=== PATIENT | female | born 1995 | race Caucasian/White ===

== ENCOUNTER 2016-09-03 15:51 | Emergency (ER) | payer MEDICAID, OTHER ==
[2016-09-03] MEDS ORDERED: Sodium Chloride 0.9% 10 ML Syringe FLUSH PRN (16:01)
[2016-09-03] MEDS ORDERED: Sodium Chloride 0.9% 1,000 ML IV ONE (16:01)
[2016-09-03] MEDS ORDERED: Sodium Chloride 0.9% 2.5 ML Syringe FLUSH PRN (16:01)
[2016-09-03] MEDS ORDERED: LORazepam 2 MG/ML MDV IVPUSH ONE (16:01)
--- NOTE | 2016-09-03 16:21 | EDM.PDOC ---
ED HPI GENERAL MEDICAL PROBLEM - General Chief Complaint: Chest Pain Stated Complaint: UNK Time Seen by Provider: 09/03/16 16:00 - History of Present Illness INITIAL COMMENTS - FREE TEXT/NARRATIVE: HISTORY AND PHYSICAL: History of present illness: Patient is a 21-year-old female was approximately 10 weeks with history of anxiety presents with concern of left lower chest pain that came on somewhat acutely when she was putting on her makeup she subsequently hyperventilated and presents here for evaluation she has had similar episodes in the past she has been followed by [facility] 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 Past medical history: As per history of present illness and as reviewed below otherwise noncontributory. Surgical history: As per history of present illness and as reviewed below otherwise noncontributory. Social history: No reported history of drug or alcohol abuse. Family history: As per history of present illness and as reviewed below otherwise noncontributory. Physical exam: HEENT: Atraumatic, normocephalic, pupils reactive, negative for conjunctival pallor or scleral icterus, mucous membranes moist, throat clear, neck supple, nontender, trachea midline. Lungs: Clear to auscultation, breath sounds equal bilaterally, chest nontender. Heart: S1S2, regular, negative for clicks, rubs, or JVD. Abdomen: Soft, nondistended, nontender. Negative for masses or hepatosplenomegaly. Negative for costovertebral tenderness. Pelvis: Stable nontender. Genitourinary: Deferred. Rectal: Deferred. Extremities: Atraumatic, negative for cords or calf pain. Neurovascular unremarkable. Neuro: Awake, alert, oriented. Cranial nerves II through XII unremarkable. Cerebellum unremarkable. Motor and sensory unremarkable throughout. Exam nonfocal. Diagnostics: EKG CBC CMP Therapeutics: Normal saline 1 L bolus Impression: #1 atypical chest pain #2 anxiety #3 first trimester Definitive disposition and diagnosis as appropriate pending reevaluation and review of above. Left Chest Pain Score (Numeric/FACES): 10 - Related Data Allergies Allergy/AdvReac Type Severity Reaction Status Date / Time Penicillins Allergy Difficulty Verified 09/03/16 16:03 Breathing Home Meds: Home Meds Albuterol [Ventolin HFA] 2 puff INH DAILY PRN 12/11/15 [History] Past Medical History - Past Health History Medical/Surgical History: Denies Medical/Surgical History Respiratory History: Reports: Asthma Musculoskeletal History: Reports: None Other Musculoskeletal History: torn ACL and meniscus on left knee currently Dermatologic History: Reports: Other (see below) Other Dermatologic History: cold induced urticaria - Past Surgical History Other Musculoskeletal Surgeries/Procedures:: knee surgery left (2012) Social & Family History - Family History Family Medical History: Noncontributory - Tobacco Use Smoking Status *Q: Never Smoker Second Hand Smoke Exposure: No - Recreational Drug Use Recreational Drug Use: No ED ROS GENERAL - Review of Systems Review Of Systems: ROS reveals no pertinent complaints other than HPI. ED EXAM, GENERAL - Physical Exam Exam: See Below (See dictation) Course - Vital Signs Last Recorded V/S: Last Vital Signs Temp 36.6 C 09/03/16 16:03 Pulse 76 09/03/16 16:03 Resp 32 H 09/03/16 16:03 BP 126/73 09/03/16 16:03 Pulse Ox 100 09/03/16 16:03 - Orders/Labs/Meds Orders: Active Orders 24 hr Category Date Time Status EKG Documentation Completion [RC] STAT Care 09/03/16 16:00 Active Pulse Oximetry [RC] ASDIRECTED Care 09/03/16 16:00 Active Sodium Chloride 0.9% [Saline Flush] Med 09/03/16 16:01 Active 10 ml FLUSH ASDIRECTED PRN Sodium Chloride 0.9% [Saline Flush] Med 09/03/16 16:01 Active 2.5 ml FLUSH ASDIRECTED PRN Saline Lock Insert [OM.PC] Stat Oth 09/03/16 16:00 Ordered Medication Orders Sodium Chloride (Saline Flush) 10 ml FLUSH ASDIRECTED PRN PRN Reason: Keep Vein Open Sodium Chloride (Saline Flush) 2.5 ml FLUSH ASDIRECTED PRN PRN Reason: Keep Vein Open Labs: Laboratory Tests 09/03/16 09/03/16 Range/Units 16:19 16:19 WBC 9.89 (4.0-11.0) K/uL RBC 4.39 (4.30-5.90) M/uL Hgb 13.1 (12.0-16.0) g/dL Hct 38.3 (36.0-46.0) % MCV 87.2 (80.0-98.0) fL MCH 29.8 (27.0-32.0) pg MCHC 34.2 (31.0-37.0) g/dL RDW Std Deviation 39.5 (28.0-62.0) fl RDW Coeff of Kody 12 (11.0-15.0) % Plt Count 312 (150-400) K/uL MPV 9.90 (7.40-12.00) fL Neut % (Auto) 74.3 (48.0-80.0) % Lymph % (Auto) 18.3 (16.0-40.0) % [place] % (Auto) 6.6 (0.0-15.0) % Eos % (Auto) 0.6 (0.0-7.0) % Baso % (Auto) 0.2 (0.0-1.5) % Neut # (Auto) 7.4 H (1.4-5.7) K/uL Lymph # (Auto) 1.8 (0.6-2.4) K/uL [place] # (Auto) 0.7 (0.0-0.8) K/uL Eos # (Auto) 0.1 (0.0-0.7) K/uL Baso # (Auto) 0.0 (0.0-0.1) K/uL Nucleated RBC % 0.0 /100WBC Nucleated RBCs # 0 K/uL Sodium 137 (136-146) mmol/L Potassium 4.0 (3.5-5.1) mmol/L Chloride 106 (98-110) mmol/L Carbon Dioxide 19 L (21-31) mmol/L BUN 12 (6.0-23.0) mg/dL Creatinine 0.8 (0.6-1.5) mg/dL Est Cr Clr Drug Dosing 87.95 mL/min Estimated GFR (MDRD) > 60.0 ml/min Glucose 64 (60-110) mg/dL Calcium 9.7 (8.8-10.8) mg/dL Total Bilirubin 0.3 (0.1-1.5) mg/dL AST 17 (5-40) IU/L ALT 12 (8-54) IU/L Alkaline Phosphatase 49 (40-150) Total Protein 7.3 (6.0-8.0) g/dL Albumin 4.3 (3.5-5.0) g/dL Globulin 3.0 (2.0-3.5) g/dL Albumin/Globulin Ratio 1.4 (1.3-2.8) Meds: Medications Generic Name Dose Route Start Last Admin Trade Name Freq PRN Reason Stop Dose Admin Sodium Chloride 10 ml 09/03/16 16:01 Saline Flush FLUSH ASDIRECTED PRN Keep Vein Open Sodium Chloride 2.5 ml 09/03/16 16:01 Saline Flush FLUSH ASDIRECTED PRN Keep Vein Open Discontinued Medications Generic Name Dose Route Start Last Admin Trade Name Freq PRN Reason Stop Dose Admin Sodium Chloride 1,000 mls @ 999 mls/hr 09/03/16 16:01 09/03/16 16:21 Normal Saline IV 09/03/16 17:01 999 mls/hr STAT ONE Administration Departure - Departure Time of Disposition: 17:15 Disposition: Home, Self-Care 01 Condition: good Clinical Impression: First trimester , Anxiety, Atypical chest pain Forms: ED Department Discharge Additional Instructions: The following information is given to patients seen in the emergency department who are being discharged to home. This information is to outline your options for follow-up care. We provide all patients seen in our emergency department with a follow-up referral. The need for follow-up, as well as the timing and circumstances, are variable depending upon the specifics of your emergency department visit. If you don't have a primary care physician on staff, we will provide you with a referral. We always advise you to contact your personal physician following an emergency department visit to inform them of the circumstance of the visit and for follow-up with them and/or the need for any referrals to a consulting specialist. The emergency department will also refer you to a specialist when appropriate. This referral assures that you have the opportunity for followup care with a specialist. All of these measure are taken in an effort to provide you with optimal care, which includes your followup. Under all circumstances we always encourage you to contact your private physician who remains a resource for coordinating your care. When calling for followup care, please make the office aware that this follow-up is from your recent emergency room visit. If for any reason you are refused follow-up, please contact the [facility] emergency department at and asked to speak to the emergency department charge nurse. Followup primary medical doctor one to 2 days return as needed as discussed - My Orders Last 24 Hours: My Active Orders 09/03/16 16:00 EKG Documentation Completion [RC] STAT Pulse Oximetry [RC] ASDIRECTED Saline Lock Insert [OM.PC] Stat 09/03/16 16:01 Sodium Chloride 0.9% [Saline Flush] 10 ml FLUSH ASDIRECTED PRN Sodium Chloride 0.9% [Saline Flush] 2.5 ml FLUSH ASDIRECTED PRN - Assessment/Plan Last 24 Hours: My Active Orders 09/03/16 16:00 EKG Documentation Completion [RC] STAT Pulse Oximetry [RC] ASDIRECTED Saline Lock Insert [OM.PC] Stat 09/03/16 16:01 Sodium Chloride 0.9% [Saline Flush] 10 ml FLUSH ASDIRECTED PRN Sodium Chloride 0.9% [Saline Flush] 2.5 ml FLUSH ASDIRECTED PRN
[2016-09-03 17:03] LABS: CHLORIDE,CL 106 mmol/L (98-110); SODIUM,NA 137 mmol/L (136-146)
[2016-09-03 17:33] VITALS: BP 125/70
== END 2016-09-03 17:28 | disposition home or self-care (01) ==
LOC: MW.ED 15:51
DX: O99.89 Other specified diseases and conditions complicating pregnancy, childbirth and the puerperium (principal); R07.89 Other chest pain; O99.341 Other mental disorders complicating pregnancy, first trimester; F41.9 Anxiety disorder, unspecified; O99.511 Diseases of the respiratory system complicating pregnancy, first trimester; Z3A.10 10 weeks gestation of pregnancy; Z98.890 Other specified postprocedural states; Z88.0 Allergy status to penicillin
CPT/HCPCS: 80053; 85025; 93005; 96360; 99285; J7040; 99284

== ENCOUNTER 2017-03-28 19:40 | Inpatient (IN) | payer MEDICAID ==
[2017-03-28] MEDS: Clindamycin Phosphate in D5W 900 MG in Premix Bag 1 BAG IV SCH ×2 (19:45)
[2017-03-28] MEDS ORDERED: Misoprostol 25 MCG (1/4 of 100 MCG) Tab VAG PRN (20:04)
[2017-03-28] MEDS ORDERED: Sodium Chloride 0.9% 10 ML Syringe FLUSH PRN (20:04)
[2017-03-28] MEDS ORDERED: Terbutaline 1 MG/ML SDV SUBCUT PRN (20:04)
[2017-03-28] MEDS ORDERED: Carboprost Tromethamine 250 MCG/1 ML Amp IM PRN (20:04)
[2017-03-28] MEDS ORDERED: Lidocaine 1% 50 ML MDV INJECT PRN (20:04)
[2017-03-28] MEDS ORDERED: Water For Irrigation,Sterile 1,000 ML Container IRR PRN (20:04)
[2017-03-28] MEDS ORDERED: Methylergonovine 0.2 MG/1 ML Amp IM PRN (20:04)
[2017-03-28] MEDS ORDERED: Sodium Chloride 0.9% 2.5 ML Syringe FLUSH PRN (20:04)
[2017-03-28] MEDS ORDERED: Misoprostol 200 MCG Tab PO PRN (20:04)
[2017-03-28] MEDS ORDERED: Butorphanol 1 MG/ML SDV IVPUSH PRN (20:04)
[2017-03-28] MEDS ORDERED: Oxytocin/0.9 % Sodium Chloride 30 UNIT/500 ML BAG IV SCH (20:15)
[2017-03-28] MEDS: Lactated Ringers 1,000 ML IV SCH (20:35)
[2017-03-29] MEDS: Lactated Ringers 1,000 ML IV SCH ×4 (03:18→14:00)
[2017-03-29] MEDS ORDERED: fentaNYL 100 MCG/2 ML SDV ONE ×2 (03:58→13:46)
[2017-03-29] MEDS ORDERED: Ropivacaine HCl/PF 100 ML ONE ×2 (03:58→13:46)
--- NOTE | 2017-03-29 04:35 | PCM.PREANE ---
Preanesthetic Assessment - Anesthesia/Transfusion/Family Hx Anesthesia History: Prior Anesthesia Without Reaction Other Type of Anesthesia Reaction Comment: Pt states she was slow to wake up after a knee scope Family History of Anesthesia Reaction: No Transfusion History: No Prior Transfusion(s) Intubation History: Unknown - Review of Systems General: No Symptoms Pulmonary: No Symptoms Cardiovascular: No Symptoms Gastrointestinal: Nausea, Vomiting Neurological: No Symptoms Other: Reports: Anxiety - Physical Assessment NPO Status Date: 03/29/17 NPO Status Time: 04:31 (sips/chips) Pulse: 89 O2 Sat by Pulse Oximetry: 100 Blood Pressure: 136/92 Height: 5 ft 1 in Weight: 166 lb ASA Class: 2 Mental Status: Alert & Oriented x3 Airway Class: Mallampati = 2 Dentition: Reports: Normal Dentition Thyro-Mental Finger Breadths: 3 Mouth Opening Finger Breadths: 3 ROM/Head Extension: Full Lungs: Clear to Auscultation, Normal Respiratory Effort Cardiovascular: Regular Rate, Regular Rhythm - Lab Values: Laboratory Last Values WBC 9.61 K/uL (4.0-11.0) 03/28/17 20:35 RBC 3.73 M/uL (4.30-5.90) L 03/28/17 20:35 Hgb 11.4 g/dL (12.0-16.0) L 03/28/17 20:35 Hct 33.8 % (36.0-46.0) L 03/28/17 20:35 MCV 90.6 fL (80.0-98.0) 03/28/17 20:35 MCH 30.6 pg (27.0-32.0) 03/28/17 20:35 MCHC 33.7 g/dL (31.0-37.0) 03/28/17 20:35 RDW Std Deviation 44.8 fl (28.0-62.0) 03/28/17 20:35 RDW Coeff of Kody 14 % (11.0-15.0) 03/28/17 20:35 Plt Count 246 K/uL (150-400) 03/28/17 20:35 MPV 11.40 fL (7.40-12.00) 03/28/17 20:35 Nucleated RBC % 0.0 /100WBC 03/28/17 20:35 Nucleated RBCs # 0 K/uL 03/28/17 20:35 Membrane Rupture POSITIVE 03/29/17 02:45 Blood Type A POSITIVE 03/28/17 20:35 Antibody Screen NEGATIVE 03/28/17 20:35 - Allergies Allergies/Adverse Reactions: Allergies Allergy/AdvReac Type Severity Reaction Status Date / Time Penicillins Allergy Difficulty Verified 09/03/16 16:03 Breathing - Blood Blood Available: No Product(s) Available: None - Anesthesia Plan Free Text/Narrative:: Labor Epidural - Acknowledgements Anesthesia Type Planned: Epidural Pt an Appropriate Candidate for the Planned Anesthesia: Yes Alternatives and Risks of Anesthesia Discussed w Pt/Guardian: Yes Pt/Guardian Understands and Agrees with Anesthesia Plan: Yes PreAnesthesia Questionnaire - Past Health History Medical/Surgical History: Denies Medical/Surgical History Respiratory History: Reports: Asthma 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: Musculoskeletal History: Reports: None Other Musculoskeletal History: torn ACL and meniscus on left knee currently Dermatologic History: Reports: Other (See Below) Other Dermatologic History: cold induced urticaria - Past Surgical History Respiratory Surgical History: Reports: None Musculoskeletal Surgical History: Reports: Arthroscopic Knee - SUBSTANCE USE Smoking Status *Q: Never Smoker Second Hand Smoke Exposure: Yes Recreational Drug Use History: No - HOME MEDS Home Medications: Home Meds Albuterol [Ventolin HFA] 2 puff INH DAILY PRN 12/11/15 [History] - CURRENT (IN HOUSE) MEDS Current Meds: Current Medications Butorphanol Tartrate (Stadol) 1 mg IVPUSH ASDIRECTED PRN PRN Reason: Pain Carboprost Tromethamine (Hemabate Ds) 250 mcg IM ASDIRECTED PRN PRN Reason: Post Hemorrhage Clindamycin Phosphate 900 mg/ (Premix) 50 mls @ 100 mls/hr IV Q8H MILA Last Admin: 03/28/17 19:45 Dose: 100 mls/hr Lactated Ringer's (Ringers, Lactated) 1,000 mls @ 150 mls/hr IV ASDIRECTED MILA Last Admin: 03/29/17 03:18 Dose: 500 mls/hr Oxytocin/Sodium Chloride (Oxytocin 30 Unit/500 Ml-Ns) 30 unit in 500 mls @ 2 mls/hr IV TITRATE MILA; 2 MUNITS/MIN PRN Reason: Protocol Last Titration: 03/29/17 03:55 Dose: 0 munits/min, 0 mls/hr Lidocaine HCl (Xylocaine 1%) 50 ml INJECT .ONCE PRN PRN Reason: Laceration repair Methylergonovine Maleate (Methergine) 0.2 mg IM ASDIRECTED PRN PRN Reason: Post Hemorrhage Misoprostol (Cytotec) 200 mcg PO .ONCE PRN PRN Reason: Post Hemorrhage Misoprostol (Cytotec) 25 mcg VAG Q6H PRN PRN Reason: Cervical Ripening Last Admin: 03/28/17 20:53 Dose: 25 mcg Sodium Chloride (Saline Flush) 10 ml FLUSH ASDIRECTED PRN PRN Reason: Keep Vein Open Sodium Chloride (Saline Flush) 2.5 ml FLUSH ASDIRECTED PRN PRN Reason: Keep Vein Open Sterile Water (Sterile Water For Irrigation) 1,000 ml IRR ASDIRECTED PRN PRN Reason: delivery Terbutaline Sulfate (Brethine) 0.25 mg SUBCUT ASDIRECTED PRN PRN Reason: Tacysystole Discontinued Medications Fentanyl (Sublimaze) Confirm Administered Dose 100 mcg .ROUTE .STK-MED ONE Stop: 03/29/17 03:59 Ropivacaine (Naropin 0.2%) Confirm Administered Dose 100 mls @ as directed .ROUTE .STK-MED ONE Stop: 03/29/17 03:59
[2017-03-29] MEDS: Clindamycin Phosphate in D5W 900 MG in Premix Bag 1 BAG IV SCH ×4 (04:38→13:25)
[2017-03-29] MEDS ORDERED: Acetaminophen 500 MG Tab PO PRN (16:59)
[2017-03-29] MEDS ORDERED: Ibuprofen 400 MG Tab PO PRN (16:59)
[2017-03-29] MEDS ORDERED: Bisacodyl 10 MG Supp RECTAL PRN (16:59)
[2017-03-29] MEDS ORDERED: Lanolin 100% Cream 7 GM Tube TOP PRN (16:59)
[2017-03-29] MEDS ORDERED: Witch Hazel Medicated Pads 40/Jar TOP PRN (16:59)
[2017-03-29] MEDS ORDERED: Benzocaine/Menthol 20%-0.5% Spray 78 GM Cannister TOP PRN (16:59)
[2017-03-29] MEDS: Ibuprofen 800 MG Tab PO PRN ×2 (17:40→23:39)
[2017-03-29] MEDS: oxyCODONE 5 MG Tab PO PRN ×3 (18:31→23:40)
[2017-03-29] MEDS: Docusate Sodium 100 MG Cap PO PRN (20:56)
--- NOTE | 2017-03-29 23:48 | OR ---
SURGEON: Bridget Patel M.D. DATE OF PROCEDURE: 03/29/2017 PREOPERATIVE DIAGNOSES: 1. A 40 and 3 weeks intrauterine . 2. Induction of labor. 3. Group B beta strep positive. POSTOPERATIVE DIAGNOSES: 1. A 40 and 3 weeks intrauterine . 2. Induction of labor. 3. Group B beta strep positive. PROCEDURE: 1. Spontaneous vaginal delivery. 2. Right periurethral laceration repaired. ANESTHESIA: Epidural. ESTIMATED BLOOD LOSS: 350 mL. COMPLICATIONS: None. FINDINGS: Term male, score 7 at 1 and 9 at 5 minutes. Weight 3600 g. Spontaneous delivery, intact placenta, 3-vessel cord. DISPOSITION: to nursery, mom in LDRP, stable. INDICATIONS: Leila is a 21-year-old, G1, P0, at 40 and 3 weeks gestational age, who presented on the evening of 03/28/2017 for scheduled induction of labor due to past due . overall has been uncomplicated other than the fetus has been diagnosed with a small VSD and a duplicated renal collecting system on the right side. PROCEDURE IN DETAIL: On initial examination, the patient was initiated on Cytotec, which prompted labor and spontaneous rupture of membranes. She became increasingly uncomfortable and at approximately 04:00 a.m. was requesting regional anesthesia from epidural. She was found to be 5 cm, 90% effaced, -3 station. Therefore, she underwent epidural successfully and became more comfortable and progressed to approximately 8 cm shortly after 08:00 a.m. heart tones were 120s with variability. The patient made slow progress thereafter. She was 9 cm majority of the morning and finally progressed to anterior lip in the early afternoon and Pitocin augmentation was initiated at this juncture. heart tones overall remained in the 120s with occasional variable deceleration if tried to increase the Pitocin past 2 milliunits. The patient was able to progress to complete shortly after 03:00 p.m. and began pushing efforts, pushed readily and I was called for delivery shortly before 04:00 p.m. Upon my arrival, the patient was placed in modified dorsal lithotomy position, prepped and draped in the usual aseptic manner. Continued with pushing efforts as she was at +2 station. Over the next 30 minutes, she was able to push to a +4 station, deliver 's head atraumatically, spontaneously, followed by anterior shoulder, posterior shoulder, remainder of the body without difficulty. The infant's oropharynx and nares were bulb suctioned. Cord clamped x2 and cut. Infant was handed off to his mother with attending nursing staff at her side. Cord arterial, cord venous, cord blood sampling was obtained. Light suprapubic pressure was applied while the placenta was delivered spontaneously intact. Vigorous fundal uterine massage was then applied while 30 units of Pitocin was delivered in 500 mL of IV fluid. Upon inspection of cervix, vaginal sidewalls, and perineum, there was found to be a right periurethral laceration. This was repaired using 3-0 Vicryl with [id number] suture. Hemostasis thereafter evident. Uterus remained firm. The patient remained in LDRP. in nursery. JULIÁN HOUSE /[id number]
[2017-03-30] MEDS: Ibuprofen 800 MG Tab PO PRN ×3 (05:52→18:32)
[2017-03-30] MEDS: oxyCODONE 5 MG Tab PO PRN ×4 (05:52→21:21)
--- NOTE | 2017-03-30 06:52 | PCM48HPAN ---
Post Anesthesia Note - EVALUATION WITHIN 48HRS OF ANESTHETIC Vital Signs in Normal Range: Yes Patient Participated in Evaluation: Yes Respiratory Function Stable: Yes Airway Patent: Yes Cardiovascular Function Stable: Yes Hydration Status Stable: Yes Pain Control Satisfactory: Yes Nausea and Vomiting Control Satisfactory: Yes Mental Status Recovered: Yes
--- NOTE | 2017-03-30 08:23 | PCM.PNPP ---
- General Info Date of Service: 03/30/17 Functional Status: Reports: Pain Controlled, Tolerating Diet, Ambulating, Urinating - Review of Systems General: Denies: Fever, Weakness, Fatigue Pulmonary: Denies: Shortness of Breath, Pleuritic Chest Pain, Cough Cardiovascular: Denies: Chest Pain, Palpitations, Dyspnea on Exertion Gastrointestinal: Denies: Abdominal Pain Genitourinary: Denies: Dysuria Psychiatric: Reports: No Symptoms - General Info Date of Service: 03/30/17 - Patient Data Vital Signs - Most Recent: Last Vital Signs Temp 36.4 C 03/30/17 02:50 Pulse 83 03/30/17 02:50 Resp 18 03/30/17 02:50 BP 116/59 L 03/30/17 02:50 Pulse Ox 98 03/30/17 02:50 Weight - Most Recent: 75.296 kg Lab Results - Last 24 Hours: Laboratory Results - last 24 hr 03/30/17 Range/Units 05:51 Hgb 8.9 L (12.0-16.0) g/dL Hct 26.9 L (36.0-46.0) % Med Orders - Current: Current Medications Acetaminophen (Tylenol Extra Strength) 500 mg PO Q4H PRN PRN Reason: Pain Acetaminophen (Tylenol Extra Strength) 1,000 mg PO Q4H PRN PRN Reason: Pain Benzocaine/Menthol (Dermoplast Pain Relief 20%-0.5% [place]) 78 gm TOP ASDIRECTED PRN PRN Reason: Perineal Comfort Measure Last Admin: 03/29/17 17:39 Dose: 1 canister Bisacodyl (Dulcolax) 10 mg RECTAL .ONCE PRN PRN Reason: Constipation Carboprost Tromethamine (Hemabate Ds) 250 mcg IM ASDIRECTED PRN PRN Reason: Post Hemorrhage Docusate Sodium (Colace) 100 mg PO BID PRN PRN Reason: Constipation Last Admin: 03/29/17 20:56 Dose: 100 mg Emollient Ointment (Lansinoh Hpa) 0 gm TOP ASDIRECTED PRN PRN Reason: Sore Nipples Lactated Ringer's (Ringers, Lactated) 1,000 mls @ 150 mls/hr IV ASDIRECTED MILA Last Admin: 03/29/17 14:00 Dose: 500 mls/hr Oxytocin/Sodium Chloride (Oxytocin 30 Unit/500 Ml-Ns) 30 unit in 500 mls @ 2 mls/hr IV TITRATE MILA; 2 MUNITS/MIN PRN Reason: Protocol Last Titration: 03/29/17 16:42 Dose: 250 munits/min, 250 mls/hr Ibuprofen (Motrin) 400 mg PO Q4H PRN PRN Reason: Pain Ibuprofen (Motrin) 800 mg PO Q6H PRN PRN Reason: Pain Last Admin: 03/30/17 05:52 Dose: 800 mg Methylergonovine Maleate (Methergine) 0.2 mg IM ASDIRECTED PRN PRN Reason: Post Hemorrhage Misoprostol (Cytotec) 200 mcg PO .ONCE PRN PRN Reason: Post Hemorrhage Oxycodone HCl (Oxycodone) 5 mg PO Q2H PRN PRN Reason: Pain Last Admin: 03/30/17 05:52 Dose: 5 mg Sodium Chloride (Saline Flush) 10 ml FLUSH ASDIRECTED PRN PRN Reason: Keep Vein Open Sodium Chloride (Saline Flush) 2.5 ml FLUSH ASDIRECTED PRN PRN Reason: Keep Vein Open Witch Diana (Tucks) 1 pad TOP ASDIRECTED PRN PRN Reason: comfort care Last Admin: 03/29/17 17:40 Dose: 1 tub Discontinued Medications Butorphanol Tartrate (Stadol) 1 mg IVPUSH ASDIRECTED PRN PRN Reason: Pain Fentanyl (Sublimaze) Confirm Administered Dose 100 mcg .ROUTE .STK-MED ONE Stop: 03/29/17 03:59 Fentanyl (Sublimaze) Confirm Administered Dose 200 mcg .ROUTE .STK-MED ONE Stop: 03/29/17 13:47 Clindamycin Phosphate 900 mg/ (Premix) 50 mls @ 100 mls/hr IV Q8H MILA Last Admin: 03/29/17 13:25 Dose: 100 mls/hr Ropivacaine (Naropin 0.2%) Confirm Administered Dose 100 mls @ as directed .ROUTE .STK-MED ONE Stop: 03/29/17 03:59 Ropivacaine (Naropin 0.2%) Confirm Administered Dose 100 mls @ as directed .ROUTE .STK-MED ONE Stop: 03/29/17 13:47 Lidocaine HCl (Xylocaine 1%) 50 ml INJECT .ONCE PRN PRN Reason: Laceration repair Misoprostol (Cytotec) 25 mcg VAG Q6H PRN PRN Reason: Cervical Ripening Last Admin: 03/28/17 20:53 Dose: 25 mcg Sterile Water (Sterile Water For Irrigation) 1,000 ml IRR ASDIRECTED PRN PRN Reason: delivery Last Admin: 03/29/17 16:30 Dose: 1,000 ml Terbutaline Sulfate (Brethine) 0.25 mg SUBCUT ASDIRECTED PRN PRN Reason: Tacysystole - Interaction Disposition, : [place] to Nursery Infant Feeding: Breastfed ; Nursed Well Support Person: - Recovery Exam Fundal Tone: Firm Fundal Level: 1 Fingerbreadths Below Umbilicus Fundal Placement: Midline Lochia Amount: Scant Lochia Color: Rubra/Red Perineum Description: Edematous Other Perinuem Description: swelling noted Episiotomy/Laceration: Approximated Bladder Status: Voiding - Exam General: Alert, Oriented Lungs: Clear to Auscultation, Normal Respiratory Effort Cardiovascular: Regular Rate, Regular Rhythm GI/Abdominal Exam: Normal Bowel Sounds, Soft, Non-Tender, No Distention, No Mass Extremities: Normal Inspection, Pedal Edema (trace) - Problem List & Annotations (1) Vaginal delivery SNOMED Code(s): 933717421 Code(s): O80 - ENCOUNTER FOR FULL-TERM UNCOMPLICATED DELIVERY Status: Acute Current Visit: Yes - Problem List Review Problem List Initiated/Reviewed/Updated: Yes - Assessment Assessment:: PPD #1 from . Minimal pain and lochia. Breast feeding well. - Plan Plan:: Continue routine post- cares. Infant may stay another night for monitoring due to VSD. Anticipate discharge home tomorrow.
[2017-03-30] MEDS: Acetaminophen 500 MG Tab PO PRN ×2 (09:30→14:58)
[2017-03-31] MEDS: Ibuprofen 800 MG Tab PO PRN ×3 (00:18→13:00)
[2017-03-31] MEDS: oxyCODONE 5 MG Tab PO PRN ×6 (04:35→18:20)
[2017-03-31] MEDS: Acetaminophen 500 MG Tab PO PRN ×2 (09:05→14:19)
[2017-03-31] MEDS: Docusate Sodium 100 MG Cap PO PRN (09:05)
--- NOTE | 2017-03-31 09:09 | PCM.PNPP ---
- General Info Date of Service: 03/31/17 Subjective Update: Patient is still struggling with headache--awoke in the middle of the night with a severe headache. When she attempts to get up to walk, she has a headache. Otherwise, she is tolerating diet, ambulates to bathroom, did shower. She is voiding. Lochia is dissipating. Functional Status: Reports: Tolerating Diet, Ambulating, Urinating - Review of Systems General: Denies: Fever Pulmonary: Denies: Shortness of Breath Cardiovascular: Denies: Chest Pain, Palpitations, Lightheadedness Gastrointestinal: Denies: Nausea, Vomiting Genitourinary: Denies: Flank Pain Neurological: Reports: Headache. Denies: Dizziness, Paresthesia Psychiatric: Reports: No Symptoms - General Info Date of Service: 03/31/17 - Patient Data Vital Signs - Most Recent: Last Vital Signs Temp 36.7 C 03/30/17 21:37 Pulse 86 03/30/17 21:37 Resp 18 03/30/17 21:37 BP 128/67 03/30/17 21:37 Pulse Ox 98 03/30/17 21:37 Weight - Most Recent: 75.296 kg Med Orders - Current: Current Medications Acetaminophen (Tylenol Extra Strength) 500 mg PO Q4H PRN PRN Reason: Pain Acetaminophen (Tylenol Extra Strength) 1,000 mg PO Q4H PRN PRN Reason: Pain Last Admin: 03/30/17 14:58 Dose: 1,000 mg Benzocaine/Menthol (Dermoplast Pain Relief 20%-0.5% [place]) 78 gm TOP ASDIRECTED PRN PRN Reason: Perineal Comfort Measure Last Admin: 03/29/17 17:39 Dose: 1 canister Bisacodyl (Dulcolax) 10 mg RECTAL .ONCE PRN PRN Reason: Constipation Carboprost Tromethamine (Hemabate Ds) 250 mcg IM ASDIRECTED PRN PRN Reason: Post Hemorrhage Docusate Sodium (Colace) 100 mg PO BID PRN PRN Reason: Constipation Last Admin: 03/29/17 20:56 Dose: 100 mg Emollient Ointment (Lansinoh Hpa) 0 gm TOP ASDIRECTED PRN PRN Reason: Sore Nipples Lactated Ringer's (Ringers, Lactated) 1,000 mls @ 150 mls/hr IV ASDIRECTED MILA Last Admin: 03/29/17 14:00 Dose: 500 mls/hr Oxytocin/Sodium Chloride (Oxytocin 30 Unit/500 Ml-Ns) 30 unit in 500 mls @ 2 mls/hr IV TITRATE MILA; 2 MUNITS/MIN PRN Reason: Protocol Last Titration: 03/29/17 16:42 Dose: 250 munits/min, 250 mls/hr Ibuprofen (Motrin) 400 mg PO Q4H PRN PRN Reason: Pain Ibuprofen (Motrin) 800 mg PO Q6H PRN PRN Reason: Pain Last Admin: 03/31/17 06:24 Dose: 800 mg Methylergonovine Maleate (Methergine) 0.2 mg IM ASDIRECTED PRN PRN Reason: Post Hemorrhage Misoprostol (Cytotec) 200 mcg PO .ONCE PRN PRN Reason: Post Hemorrhage Oxycodone HCl (Oxycodone) 5 mg PO Q2H PRN PRN Reason: Pain Last Admin: 03/31/17 04:35 Dose: 5 mg Sodium Chloride (Saline Flush) 10 ml FLUSH ASDIRECTED PRN PRN Reason: Keep Vein Open Sodium Chloride (Saline Flush) 2.5 ml FLUSH ASDIRECTED PRN PRN Reason: Keep Vein Open Witch Diana (Tucks) 1 pad TOP ASDIRECTED PRN PRN Reason: comfort care Last Admin: 03/29/17 17:40 Dose: 1 tub Discontinued Medications Butorphanol Tartrate (Stadol) 1 mg IVPUSH ASDIRECTED PRN PRN Reason: Pain Fentanyl (Sublimaze) Confirm Administered Dose 100 mcg .ROUTE .STK-MED ONE Stop: 03/29/17 03:59 Fentanyl (Sublimaze) Confirm Administered Dose 200 mcg .ROUTE .STK-MED ONE Stop: 03/29/17 13:47 Clindamycin Phosphate 900 mg/ (Premix) 50 mls @ 100 mls/hr IV Q8H MILA Last Admin: 03/29/17 13:25 Dose: 100 mls/hr Ropivacaine (Naropin 0.2%) Confirm Administered Dose 100 mls @ as directed .ROUTE .STK-MED ONE Stop: 03/29/17 03:59 Ropivacaine (Naropin 0.2%) Confirm Administered Dose 100 mls @ as directed .ROUTE .[facility]-MED ONE Stop: 03/29/17 13:47 Lidocaine HCl (Xylocaine 1%) 50 ml INJECT .ONCE PRN PRN Reason: Laceration repair Misoprostol (Cytotec) 25 mcg VAG Q6H PRN PRN Reason: Cervical Ripening Last Admin: 03/28/17 20:53 Dose: 25 mcg Sterile Water (Sterile Water For Irrigation) 1,000 ml IRR ASDIRECTED PRN PRN Reason: delivery Last Admin: 03/29/17 16:30 Dose: 1,000 ml Terbutaline Sulfate (Brethine) 0.25 mg SUBCUT ASDIRECTED PRN PRN Reason: Tacysystole - Interaction Infant Disposition, : to Nursery Feeding: Breastfed Infant; Nursed Well Support Person: - Recovery Exam Fundal Tone: Firm Fundal Level: 1 Fingerbreadths Below Umbilicus Fundal Placement: Midline Lochia Amount: Small Lochia Color: Rubra/Red Perineum Description: Intact, Minimal Bruising/Swelling Other Perinuem Description: swelling noted Episiotomy/Laceration: Approximated Bladder Status: Voiding Urinary Elimination: Voided - Exam General: Alert, Oriented Lungs: Normal Respiratory Effort Cardiovascular: Regular Rate, Regular Rhythm GI/Abdominal Exam: Soft, No Distention Extremities: Non-Tender, Pedal Edema (trace) Skin: Warm, Dry, Intact Neurological: Normal Speech, Reflexes Equal Bilateral Psy/Mental Status: Alert - Problem List & Annotations (1) Vaginal delivery SNOMED Code(s): 221029811 Code(s): O80 - ENCOUNTER FOR FULL-TERM UNCOMPLICATED DELIVERY Status: Acute Current Visit: Yes - Problem List Review Problem List Initiated/Reviewed/Updated: Yes - Assessment Assessment:: PPD #2 from . Persistent headache after difficult epidural attempts - Plan Plan:: Have asked anesthesia to come re evaluate patient. Otherwise, is going better. If patient is feeling well later today, may be discharged to home. Discharge instructions reviewed. Infection and bleeding warnings reviewed. Follow up at [facility] 6 weeks. Await anesthesia recommendations.
--- NOTE | 2017-03-31 15:49 | PCM.SN ---
- Free Text/Narrative Note: I was contacted this morning by Dr Patel with concerns of possible Spinal Headache. I spoke with the patient and she expresses that she is having photophobia and positional headache. I explained the risks and benefits of epidural blood patch and at this time the patient wishes to proceed at this time.
[2017-03-31 16:18] VITALS: BP 121/73
--- NOTE | 2017-03-31 16:29 | PCM.SN ---
- Free Text/Narrative Note: Patient treated for spinal headache by blood patch. Notes made by other anesthesia personnel and agreement made with patient and spouse, Dr. Patel, to proceed with expected relief by doing epidural blood patch so she can be discharged soon. Patient placed in LLD position, back access site chosen at L45 midline: sterile preparation of skin, 17 g Touhy needle used after 7 ml 1% lidocaine injected in the access tissues, and LENNIE technique access to epidural space achieved. Brigitte Loera luis 20 ml autologous blood from patient's arm which i immediately slowly injected into the epidural space. She experienced pressure in the low back and some to her head. Pressure abated over the next 10 minutes and she slowly relaxed with perception that her headache was gone. She was reassessed 30 minutes later after she was sitting up at 35 deg and asymptomatic. Advised to go home and rest tonite. Assessment: successful epidural blood patch for lumbar CSF leak.
== END 2017-03-31 18:30 | disposition home or self-care (01) | DRG 775 ==
LOC: MW.OBCHECK 19:40 → MW.OB 19:41 → MW.OBCHECK 20:04 → MW.OB 20:04 → OBSVTOIN 03-29 16:39
PROVIDERS: ADMIT Obstetrics & Gynecology; ATTEND Obstetrics & Gynecology
PROC: 10E0XZZ Delivery of Products of Conception, External Approach (ICD-10-PCS; principal; 2017-03-29)
PROC: 3E0P7VZ Introduction of Hormone into Female Reproductive, Via Natural or Artificial Opening (ICD-10-PCS; 2017-03-29)
PROC: 0HQ9XZZ Repair Perineum Skin, External Approach (ICD-10-PCS; 2017-03-29)
PROC: 3E0R3GC Introduction of Other Therapeutic Substance into Spinal Canal, Percutaneous Approach (ICD-10-PCS; 2017-03-31)
DX: O48.0 Post-term pregnancy (principal); O70.0 First degree perineal laceration during delivery; O89.4 Spinal and epidural anesthesia-induced headache during the puerperium; Z3A.40 40 weeks gestation of pregnancy; Z37.0 Single live birth
CPT/HCPCS: 36415; 51701; 51702; 59025; 59409; 84112; 85014; 85018; 85027; 86850; 86900; 86901; A9270-GY; J2590; J2795; J3010; J7120

== ENCOUNTER 2017-04-03 02:28 | Emergency (ER) | payer MEDICAID ==
[2017-04-03] MEDS ORDERED: Sodium Chloride 0.9% 1,000 ML IV ONE (02:54)
[2017-04-03] MEDS ORDERED: Ketorolac 30 MG/ML SDV IVPUSH ONE (02:54)
[2017-04-03] MEDS ORDERED: Sodium Chloride 0.9% 10 ML Syringe FLUSH PRN (02:54)
[2017-04-03] MEDS ORDERED: Sodium Chloride 0.9% 2.5 ML Syringe FLUSH PRN (02:54)
--- NOTE | 2017-04-03 02:59 | EDM.PDOC ---
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 She is having no urinary complaints no nausea no vomiting and only slight pelvic pain. Patient also complains of a persistent headache that is returning and she had a history of a post epidural headache which required a blood patch after the delivery of her child. She has not taken any medications for her headache pain. Patient also complains of swelling of bilateral feet and ankles but the left is greater than the right and she has calf pain in that area. Patient says she is breast-feeding without difficulty . She admits that she has not been hydrating very well oReview of systems: As per history of present illness and below otherwise all systems reviewed and negative. Past medical history: As per history of present illness and as reviewed below otherwise noncontributory. Surgical history: As per history of present illness and as reviewed below otherwise noncontributory. Social history: No reported history of drug or alcohol abuse. Family history: As per history of present illness and as reviewed below otherwise noncontributory. Physical exam: Gen.: Well-developed well-nourished female who is nontoxic and moves easily in the ED without distress. Vital signs have been reviewed by me HEENT: Atraumatic, normocephalic, pupils reactive, negative for conjunctival pallor or scleral icterus, mucous membranes moist, throat clear, neck supple, nontender, trachea midline. there is no cervical adenopathy or nuchal rigidity Lungs: Clear to auscultation, breath sounds equal bilaterally, chest nontender. Heart: S1S2, regular in rhythm no overt murmurs Abdomen: Soft, nondistended, mild tenderness in the lower abdomen throughout without rebound or guarding. Negative for masses or hepatosplenomegaly. Negative for costovertebral tenderness. Pelvis: Stable nontender. Genitourinary: External genitalia are within normal limits, there is some thick dark blood in the vault and the cervix appears post delivery in is fingertip and there is no aggressive bleeding. Uterus is bulky and mildly tender and no adnexal tenderness. Rectal: Deferred. Extremities: Atraumatic, negative for cords or calf pain. Neurovascular unremarkable. there is edema of bilateral ankles and feet left slightly greater than right and there is no leg asymmetry of the calves but there is some calf tenderness on the left. Patient is able to motion at the ankle without difficulty. There is no redness of either lower extremity. Neuro: Awake, alert, oriented. Cranial nerves II through XII unremarkable. Cerebellum unremarkable. Motor and sensory unremarkable throughout. Exam nonfocal. Diagnostics: Venous Doppler of left leg pelvic ultrasound to rule out retained products CBC CMP Therapeutics: IV fluids Toradol Today's hemoglobin is 8.2 and her prior hemoglobin on March 30 was 8.9. 0328: Case was discussed with Dr. Sheikh; she is aware of testing pending and I will recontact her with those test results. 0502: Testing results were discussed with Dr. Sheikh, including today's hemoglobin compared to the prior and the ultrasound results. She would like me to give a dose of Methergine 0.2 mg IM and inform the patient that she will have more bleeding throughout the course of the next 24 hours and then it should stop. I will explain to her and cautioned on reasons to return. Impression: vaginal bleeding, history of post epidural headache stable, ankle dependent edema stable Definitive disposition and diagnosis as appropriate pending reevaluation and review of above. 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: Musculoskeletal History: Reports: None Other Musculoskeletal History: torn ACL and meniscus on left knee 2014 Neurological History: Reports: None Psychiatric History: Reports: None Endocrine/Metabolic History: Reports: None Hematologic History: Reports: None Immunologic History: Reports: None Oncologic (Cancer) History: Reports: None Dermatologic History: Reports: Other (See Below) Other Dermatologic History: cold induced urticaria - Infectious Disease History Infectious Disease History: Reports: None - Past Surgical History Head Surgeries/Procedures: Reports: None Respiratory Surgical History: Reports: None Musculoskeletal Surgical History: Reports: Arthroscopic Knee Social & Family History - Family History Family Medical History: Noncontributory - Tobacco Use Smoking Status *Q: Never Smoker Second Hand Smoke Exposure: Yes - Caffeine Use Caffeine Use: Reports: Soda - Recreational Drug Use Recreational Drug Use: No ED ROS GENERAL - Review of Systems Review Of Systems: ROS reveals no pertinent complaints other than HPI. ED EXAM, GENERAL - Physical Exam Exam: See Below (see dictation) Course - Vital Signs Last Recorded V/S: Last Vital Signs Temp 36.6 C 04/03/17 02:38 Pulse 88 04/03/17 02:38 Resp 18 04/03/17 02:38 BP 136/61 04/03/17 02:38 Pulse Ox 98 04/03/17 02:38 - Orders/Labs/Meds Orders: Active Orders 24 hr Category Date Time Status Pelvis Non OB Comp [US] Stat Exams 04/03/17 02:53 Taken Venous Doppler Lwr Ext Lt [US] Stat Exams 04/03/17 02:53 Taken Methylergonovine [Methergine] Med 04/03/17 05:03 Once 0.2 mg IM ONETIME ONE Sodium Chloride 0.9% [Saline Flush] Med 04/03/17 02:54 Active 10 ml FLUSH ASDIRECTED PRN Sodium Chloride 0.9% [Saline Flush] Med 04/03/17 02:54 Active 2.5 ml FLUSH ASDIRECTED PRN Saline Lock Insert [OM.PC] Stat Oth 04/03/17 02:52 Ordered Medication Orders Sodium Chloride (Saline Flush) 10 ml FLUSH ASDIRECTED PRN PRN Reason: Keep Vein Open Sodium Chloride (Saline Flush) 2.5 ml FLUSH ASDIRECTED PRN PRN Reason: Keep Vein Open Labs: Laboratory Tests 04/03/17 04/03/17 Range/Units 03:13 03:13 WBC 8.13 (4.0-11.0) K/uL RBC 2.72 L (4.30-5.90) M/uL Hgb 8.2 L (12.0-16.0) g/dL Hct 25.1 L (36.0-46.0) % MCV 92.3 (80.0-98.0) fL MCH 30.1 (27.0-32.0) pg MCHC 32.7 (31.0-37.0) g/dL RDW Std Deviation 46.1 (28.0-62.0) fl RDW Coeff of Kody 14 (11.0-15.0) % Plt Count 300 (150-400) K/uL MPV 9.60 (7.40-12.00) fL Neut % (Auto) 66.1 (48.0-80.0) % Lymph % (Auto) 25.2 (16.0-40.0) % [place] % (Auto) 6.0 (0.0-15.0) % Eos % (Auto) 2.3 (0.0-7.0) % Baso % (Auto) 0.4 (0.0-1.5) % Neut # (Auto) 5.4 (1.4-5.7) K/uL Lymph # (Auto) 2.1 (0.6-2.4) K/uL [place] # (Auto) 0.5 (0.0-0.8) K/uL Eos # (Auto) 0.2 (0.0-0.7) K/uL Baso # (Auto) 0.0 (0.0-0.1) K/uL Nucleated RBC % 0.0 /100WBC Nucleated RBCs # 0 K/uL Sodium 140 (136-146) mmol/L Potassium 4.4 (3.5-5.1) mmol/L Chloride 111 H (98-110) mmol/L Carbon Dioxide 22 (21-31) mmol/L BUN 21 (6.0-23.0) mg/dL Creatinine 0.7 (0.6-1.5) mg/dL Est Cr Clr Drug Dosing 143.29 mL/min Estimated GFR (MDRD) > 60.0 ml/min Glucose 73 (60-110) mg/dL Calcium 8.8 (8.8-10.8) mg/dL Total Bilirubin 0.2 (0.1-1.5) mg/dL AST 21 (5-40) IU/L ALT 23 (8-54) IU/L Alkaline Phosphatase 115 (40-150) Total Protein 6.1 (6.0-8.0) g/dL Albumin 3.4 L (3.5-5.0) g/dL Globulin 2.7 (2.0-3.5) g/dL Albumin/Globulin Ratio 1.3 (1.3-2.8) Meds: Medications Generic Name Dose Route Start Last Admin Trade Name Freq PRN Reason Stop Dose Admin Sodium Chloride 10 ml 04/03/17 02:54 Saline Flush FLUSH ASDIRECTED PRN Keep Vein Open Sodium Chloride 2.5 ml 04/03/17 02:54 Saline Flush FLUSH ASDIRECTED PRN Keep Vein Open Discontinued Medications Generic Name Dose Route Start Last Admin Trade Name Freq PRN Reason Stop Dose Admin Sodium Chloride 1,000 mls @ 999 mls/hr 04/03/17 02:54 04/03/17 03:07 Normal Saline IV 04/03/17 03:54 999 mls/hr STAT ONE Administration Ketorolac Tromethamine 30 mg 04/03/17 02:54 04/03/17 03:07 Toradol IVPUSH 04/03/17 02:55 30 mg ONETIME ONE Administration Departure - Departure Time of Disposition: 05:03 Disposition: Home, Self-Care 01 Condition: Good Clinical Impression: Lower extremity edema bleeding Qualifiers: hemorrhage type: unspecified Qualified Code(s): O72.1 - Other immediate hemorrhage - Discharge Information Referrals: Bridget Patel MD [Primary Care Provider] - Forms: ED Department Discharge Additional Instructions: The following information is given to patients seen in the emergency department who are being discharged to home. This information is to outline your options for follow-up care. We provide all patients seen in our emergency department with a follow-up referral. The need for follow-up, as well as the timing and circumstances, are variable depending upon the specifics of your emergency department visit. If you don't have a primary care physician on staff, we will provide you with a referral. We always advise you to contact your personal physician following an emergency department visit to inform them of the circumstance of the visit and for follow-up with them and/or the need for any referrals to a consulting specialist. The emergency department will also refer you to a specialist when appropriate. This referral assures that you have the opportunity for followup care with a specialist. All of these measure are taken in an effort to provide you with optimal care, which includes your followup. Under all circumstances we always encourage you to contact your private physician who remains a resource for coordinating your care. When calling for followup care, please make the office aware that this follow-up is from your recent emergency room visit. If for any reason you are refused follow-up, please contact the [facility] emergency department at and ask to speak to the emergency department charge nurse. [facility] [address] [address] Please try to hydrate and use [id number] Tylenol or ibuprofen for your headache pain. These medications are approved in breast-feeding. Please try to elevate her legs as much as possible. Please expect more vaginal bleeding throughout the course of today but within the next 12 hours it should start to decrease significantly. Return to ER as needed and as discussed. Please call Dr. Patel's office on Wednesday and check in for further care and guidance. Nothing in vagina including tampons douching and strict pelvic rest until followed up in the clinic. - My Orders Last 24 Hours: My Active Orders 04/03/17 02:52 Saline Lock Insert [OM.PC] Stat 04/03/17 02:53 Pelvis Non OB Comp [US] Stat Venous Doppler Lwr Ext Lt [US] Stat 04/03/17 02:54 Sodium Chloride 0.9% [Saline Flush] 10 ml FLUSH ASDIRECTED PRN Sodium Chloride 0.9% [Saline Flush] 2.5 ml FLUSH ASDIRECTED PRN 04/03/17 05:03 Methylergonovine [Methergine] 0.2 mg IM ONETIME ONE - Assessment/Plan Last 24 Hours: My Active Orders 04/03/17 02:52 Saline Lock Insert [OM.PC] Stat 04/03/17 02:53 Pelvis Non OB Comp [US] Stat Venous Doppler Lwr Ext Lt [US] Stat 04/03/17 02:54 Sodium Chloride 0.9% [Saline Flush] 10 ml FLUSH ASDIRECTED PRN Sodium Chloride 0.9% [Saline Flush] 2.5 ml FLUSH ASDIRECTED PRN 04/03/17 05:03 Methylergonovine [Methergine] 0.2 mg IM ONETIME ONE
[2017-04-03 03:39] LABS: CHLORIDE,CL 111 mmol/L (98-110); SODIUM,NA 140 mmol/L (136-146)
[2017-04-03 05:03] VITALS: BP 136/85
[2017-04-03] MEDS ORDERED: Methylergonovine 0.2 MG/1 ML Amp IM ONE (05:03)
--- NOTE | 2017-04-05 11:13 | US ---
EXAM DATE: 04/03/17 PATIENT'S AGE: 21 Patient: JOVANNY SOLOMON Facility: [place], [place] Site . Site : 1995 Study: US Pelvis [id number]/03/2017 4:26:31 AM Ordering Physician: Luis Enrique Miller Final Report: INDICATION: 5 days status post vaginal delivery, bleeding. TECHNIQUE: Ultrasound pelvis transabdominal imaging only to visualize the endometrium. Real -time sonographic images with color Doppler imaging of the ovaries were obtained. COMPARISON: None. FINDINGS: Uterus: 16.7 x 6.3 x 12.0 cm. Normal echotexture of the myometrium. No masses. Endometrium: The CCA heterogeneous echotexture, measuring 19 millimeters in thickness. No abnormal vascularity. Right ovary: 3.7 x 1.7 x 2.1 e cm. No ovarian or adnexal masses. Normal color Doppler flow to the right ovary. Left ovary: 3.1 x 1.5 x 1.4 cm. No ovarian or adnexal masses. Normal color Doppler flow to the left ovary. Cul-de-sac: No significant free fluid. IMPRESSION: 1. Thickened, heterogeneous endometrium without evidence of abnormal vascularity. Findings likely due to residual blood products within the endometrial canal. Dictated by Sandip Farrell MD @ 04/03/2017 4:54:48 AM Dictated by: Sandip Farrell MD @ 04/03/2017 04:54:55 (Electronic Signature) Report Signed by Proxy. GWEN
--- NOTE | 2017-04-05 11:14 | US ---
EXAM DATE: 04/03/17 PATIENT'S AGE: 21 Patient: JOVANNY SOLOMON Facility: [place], [place] Site . Site : 1995 Study: US Extremity Venous LEFT [id number]/03/2017 4:27:11 AM Ordering Physician: Luis Enrique Miller Final Report: INDICATION: Left leg pain, swelling. TECHNIQUE: Ultrasound venous duplex lower left extremity. Compression venous exam was performed using bird-scale, color Doppler, and spectral Doppler analysis. COMPARISON: None. FINDINGS: Sonographic imaging demonstrates the left common femoral, deep femoral, superficial femoral, popliteal, posterior tibial and greater saphenous and the contralateral right common femoral veins to be fully compressible with normal color Doppler blood flow. IMPRESSION: No sign of deep venous thrombosis. Dictated by Sandip Farrell MD @ 04/03/2017 4:51:48 AM Dictated by: Sandip Farrell MD @ 04/03/2017 04:51:53 (Electronic Signature) Report Signed by Proxy. [facility]
== END 2017-04-03 05:34 | disposition home or self-care (01) ==
LOC: MW.ED 02:28
DX: O72.1 Other immediate postpartum hemorrhage (principal); O12.05 Gestational edema, complicating the puerperium; O89.4 Spinal and epidural anesthesia-induced headache during the puerperium
CPT/HCPCS: 36415; 76856; 80053; 85025; 93971; 96361; 96374; 96375; 99284; J1885; J2210; J7040

== ENCOUNTER 2017-04-07 16:00 | Emergency (ER) | payer MEDICAID ==
--- NOTE | 2017-04-07 16:57 | EDM.PDOC ---
ED HPI GENERAL MEDICAL PROBLEM - General Chief Complaint: Respiratory Problem Stated Complaint: SIDE PAIN Time Seen by Provider: 04/07/17 16:55 Source of Information: Reports: Patient History Limitations: Reports: No Limitations - History of Present Illness INITIAL COMMENTS - FREE TEXT/NARRATIVE: HISTORY AND PHYSICAL: []21-year-old female presents with right upper quadrant pain that wraps around to her back History of Present Illness: []Pain started 2 days ago she was walking upstairs after having chicken for dinner Review of Systems: As per history of present illness and below otherwise all systems reviewed and negative. Past medical history: As per history of present illness and as reviewed below otherwise noncontributory. Surgical history: As per history of present illness and as reviewed below otherwise noncontributory. Social history: No reported history of drug or alcohol abuse. Family history: As per history of present illness and as reviewed below otherwise noncontributory. Physical exam: Alert and oriented female answering questions appropriately. Speaking in full sentences without shortness of breath. Patient is rating pain 3/10. HEENT: Atraumatic, normocehpalic, pupils reactive, negative for conjunctival pallor or scleral icterus, mucous membranes moist, throat clear, neck supple, nontender, trachea midline. Lungs: Clear to auscultation, breath sounds equal bilaterally, chest non tender. Heart: S1S2, regular, negative for clicks, rubs, or JVD. Abdomen: Soft, nondistended, tender with palpation to the right upper quadrant. No rebound and no guarding. Negative for masses or hepatossplenmegaly. Negative for costovertebral tenderness. Pelvis: Stable nontender. Genitourinary: Deferred. Rectal: Deferred Extremities: Atraumatic, negative for cords or calf pain. Neurovascular unremarkable. Neuro: Awake, alert, oriented. Cranial nerves II through XII unremarkable. Cerebellum unremarkable. Motor and sensory unremarkable throughout. Exam nonfocal. Discussed case with Dr. Tomlinson who is [facility] R node the hemoglobin was now 10.6 from previously 8.2 patient will follow-up with Dr. Patel. Diagnostics: [Limited abdominal ultrasound] Therapeutics: [] Impression: [Right upper quadrant pain discharge ] Plan: [Discharged to home Symptomatic cares have been reviewed Follow-up with Dr. Patel] Definitive disposition and diagnosis as appropriate pending reevaluation and review of above. Right Rib/Right Back Pain Score (Numeric/FACES): 2 - Related Data Allergies Allergy/AdvReac Type Severity Reaction Status Date / Time Penicillins Allergy Difficulty Verified 04/03/17 02:37 Breathing Home Meds: Home Meds Albuterol [Ventolin HFA] 2 puff INH DAILY PRN 12/11/15 [History] Past Medical History - Past Health History Medical/Surgical History: Denies Medical/Surgical History HEENT History: Reports: None Cardiovascular History: Reports: None Respiratory History: Reports: Asthma Gastrointestinal History: Reports: None Genitourinary History: Reports: None HYDRAULIC J[employer]IC History: Reports: , Other (See Below) Other OB/BYN History: spinal patch after spinal headache Musculoskeletal History: Reports: None Other Musculoskeletal History: torn ACL and meniscus on left knee 2013 Neurological History: Reports: None Psychiatric History: Reports: None Endocrine/Metabolic History: Reports: None Hematologic History: Reports: None Immunologic History: Reports: None Oncologic (Cancer) History: Reports: None Dermatologic History: Reports: Other (See Below) Other Dermatologic History: cold induced urticaria - Infectious Disease History Infectious Disease History: Reports: None - Past Surgical History Head Surgeries/Procedures: Reports: None Respiratory Surgical History: Reports: None Musculoskeletal Surgical History: Reports: Arthroscopic Knee Social & Family History - Family History Family Medical History: Noncontributory Cardiac: Reports: CAD - Tobacco Use Smoking Status *Q: Never Smoker Second Hand Smoke Exposure: No - Caffeine Use Caffeine Use: Reports: Coffee - Recreational Drug Use Recreational Drug Use: No ED ROS GENERAL - Review of Systems Review Of Systems: ROS reveals no pertinent complaints other than HPI. ED EXAM, GENERAL - Physical Exam Exam: See Below (see dictation) Course - Vital Signs Last Recorded V/S: Last Vital Signs Temp 36.9 C 04/07/17 16:18 Pulse 77 04/07/17 16:18 Resp 18 04/07/17 16:18 BP 133/85 04/07/17 16:18 Pulse Ox 97 04/07/17 16:18 - Orders/Labs/Meds Orders: Active Orders 24 hr Category Date Time Status Abdomen Ltd [US] Stat Exams 04/07/17 16:54 Taken Labs: Laboratory Tests 04/07/17 04/07/17 Range/Units 18:24 18:24 WBC 10.10 (4.0-11.0) K/uL RBC 3.48 L (4.30-5.90) M/uL Hgb 10.6 L (12.0-16.0) g/dL Hct 31.4 L (36.0-46.0) % MCV 90.2 (80.0-98.0) fL MCH 30.5 (27.0-32.0) pg MCHC 33.8 (31.0-37.0) g/dL RDW Std Deviation 44.1 (28.0-62.0) fl RDW Coeff of Kody 14 (11.0-15.0) % Plt Count 434 H (150-400) K/uL MPV 9.40 (7.40-12.00) fL Neut % (Auto) 80.4 H (48.0-80.0) % Lymph % (Auto) 13.2 L (16.0-40.0) % Lewis % (Auto) 5.8 (0.0-15.0) % Eos % (Auto) 0.3 (0.0-7.0) % Baso % (Auto) 0.3 (0.0-1.5) % Neut # (Auto) 8.1 H (1.4-5.7) K/uL Lymph # (Auto) 1.3 (0.6-2.4) K/uL Lewis # (Auto) 0.6 (0.0-0.8) K/uL Eos # (Auto) 0.0 (0.0-0.7) K/uL Baso # (Auto) 0.0 (0.0-0.1) K/uL Nucleated RBC % 0.0 /100WBC Nucleated RBCs # 0 K/uL Sodium 139 (136-146) mmol/L Potassium 4.3 (3.5-5.1) mmol/L Chloride 109 (98-110) mmol/L Carbon Dioxide 21 (21-31) mmol/L BUN 19 (6.0-23.0) mg/dL Creatinine 0.8 (0.6-1.5) mg/dL Est Cr Clr Drug Dosing 84.65 mL/min Estimated GFR (MDRD) > 60.0 ml/min Glucose 80 (60-110) mg/dL Calcium 9.2 (8.8-10.8) mg/dL Total Bilirubin 0.3 (0.1-1.5) mg/dL AST 18 (5-40) IU/L ALT 16 (8-54) IU/L Alkaline Phosphatase 138 (40-150) Total Protein 7.2 (6.0-8.0) g/dL Albumin 4.0 (3.5-5.0) g/dL Globulin 3.2 (2.0-3.5) g/dL Albumin/Globulin Ratio 1.3 (1.3-2.8) Amylase 47 (10-90) U/L Lipase 34 (7-80) U/L Departure - Departure Time of Disposition: 19:46 Disposition: Home, Self-Care 01 Condition: Good Clinical Impression: Right upper quadrant pain bleeding Qualifiers: hemorrhage type: unspecified Qualified Code(s): O72.1 - Other immediate hemorrhage - Discharge Information Referrals: PCP,None [Primary Care Provider] - Forms: ED Department Discharge Additional Instructions: The following information is given to patients seen in the emergency department who are being discharged to home. This information is to outline your options for follow-up care. We provide all patients seen in our emergency department with a follow-up referral. The need for follow-up, as well as the timing and circumstances, are variable depending upon the specifics of your emergency department visit. If you don't have a primary care physician on staff, we will provide you with a referral. We always advise you to contact your personal physician following an emergency department visit to inform them of the circumstance of the visit and for follow-up with them and/or the need for any referrals to a consulting specialist. The emergency department will also refer you to a specialist when appropriate. This referral assures that you have the opportunity for followup care with a specialist. All of these measure are taken in an effort to provide you with optimal care, which includes your followup. Under all circumstances we always encourage you to contact your private physician who remains a resource for coordinating your care. When calling for followup care, please make the office aware that this follow-up is from your recent emergency room visit. If for any reason you are refused follow-up, please contact the [facility] emergency department at and asked to speak to the emergency department charge nurse. Follow-up with Dr. Patel Any increased bleeding return over this weekend Low-fat diet recommended - My Orders Last 24 Hours: My Active Orders 04/07/17 16:54 Abdomen Ltd [US] Stat - Assessment/Plan Last 24 Hours: My Active Orders 04/07/17 16:54 Abdomen Ltd [US] Stat
[2017-04-07 18:52] LABS: CHLORIDE,CL 109 mmol/L (98-110); SODIUM,NA 139 mmol/L (136-146)
[2017-04-07 19:53] VITALS: BP 119/81
--- NOTE | 2017-04-09 11:34 | US ---
EXAM DATE: 04/07/17 PATIENT'S AGE: 21 Patient: JOVANNY SOLOMON Facility: [place], [place] Site . Site : 1996 Study: US Abdomen Right -04/07/2017 5:32:39 PM Ordering Physician: Doctor Morley Final Report: INDICATION: Midline abdominal pain. Recent delivery on 03/29/2017. TECHNIQUE: Ultrasound abdomen limited. Sonographic images of the right upper quadrant were obtained using bird-scale and color Doppler images. COMPARISON: None. FINDINGS: Liver: Homogeneous in echotexture. No focal lesion. Gallbladder: No stones or sludge. Normal wall thickness. No pericholecystic fluid. Common bile duct: 2 mm. Pancreas: Normal. Right kidney: 11 cm in length. Normal echotexture and cortex. No masses, stones , or hydronephrosis. No free fluid evident. Visualized IVC and aorta are unremarkable. IMPRESSION: Unremarkable right upper quadrant ultrasound. Dictated by Kain Slade MD @ 04/07/2017 6:35:34 PM Dictated by: Kain Slade MD @ 04/07/2017 18:35:53 (Electronic Signature) Report Signed by Proxy. [facility]ITALCortez
== END 2017-04-07 19:52 | disposition home or self-care (01) ==
LOC: MW.ED 16:00
DX: O72.1 Other immediate postpartum hemorrhage (principal); Z88.0 Allergy status to penicillin
CPT/HCPCS: 36415; 76705; 76705-26; 80053; 82150; 83690; 85025; 99284; 99284-25